=== PATIENT | male | born 1960 | race Native Hawaiian/Other Pacific Islander ===

== ENCOUNTER 2016-07-12 06:59 | Outpatient (CLI) | payer OTHER ==
[~2016-07-12 06:59] MED LIST: ALLO300T23 PO; ASPIRIN325 M1 OR; ATEN25TA21 PO; BENICAR20 MG PO; BENZONATATE200 MG PO; CEFTIN250 MG OR; CLOP75TA2 PO; CLOTCRE5 EX; DIAZ5TAB20 PO; FORTAMET500 MG PO; GABA300C2 PO; INDOMETHACIN SR75 MG PO; LEVAQUIN500 MG OR; MEDROL DOSEPAK4 MG OR; SIMV40TA57 PO
== END 2016-07-12 19:42 | disposition home or self-care (01) ==
LOC: CT 06:59
DX: M53.82 Other specified dorsopathies, cervical region (principal)

== ENCOUNTER 2016-08-09 13:18 | Outpatient (CLI) | payer OTHER | END 2016-08-09 19:23 | disposition home or self-care (01) | LOC: CT 13:18 | DX: M48.06 Spinal stenosis, lumbar region (principal) ==

== ENCOUNTER 2016-11-29 07:39 | Outpatient (CLI) | payer OTHER | END 2016-11-29 19:03 | disposition home or self-care (01) | LOC: LABW 07:39 | PROVIDERS: Nurse Practitioner Adult Health | DX: E78.2 Mixed hyperlipidemia (principal); Z79.899 Other long term (current) drug therapy; Z51.81 Encounter for therapeutic drug level monitoring | CPT/HCPCS: 36415; 80061; 80076 ==

== ENCOUNTER 2017-05-31 08:12 | Outpatient (CLI) | payer OTHER | END 2017-05-31 19:20 | disposition home or self-care (01) | LOC: LABW 08:12 | PROVIDERS: Nurse Practitioner Adult Health | DX: I25.10 Atherosclerotic heart disease of native coronary artery without angina pectoris (principal); E78.2 Mixed hyperlipidemia; Z79.899 Other long term (current) drug therapy; Z51.81 Encounter for therapeutic drug level monitoring | CPT/HCPCS: 36415; 80061; 80076 ==

== ENCOUNTER 2018-03-20 09:11 | Outpatient (CLI) | payer OTHER ==
[2018-03-20 09:56] LABS: POTASSIUM 4.7 mmol/L (3.6-5.2)
== END 2018-03-20 22:39 | disposition home or self-care (01) ==
LOC: LABW 09:11
PROVIDERS: Neurological Surgery
DX: R25.2 Cramp and spasm (principal)
CPT/HCPCS: 36415; 80053; 82550; 83735; 84100

== ENCOUNTER 2018-04-28 07:13 | Outpatient (CLI) | payer OTHER ==
[2018-04-28 07:55] LABS: PLATELET COUNT 231 K/uL (142-355)
== END 2018-04-28 19:58 | disposition home or self-care (01) ==
LOC: LABW 07:13
PROVIDERS: Internal Medicine
DX: E11.9 Type 2 diabetes mellitus without complications (principal); E83.42 Hypomagnesemia
CPT/HCPCS: 36415; 80061; 81000; 82043; 82570; 83036; 83735; 84443; 85027

== ENCOUNTER 2018-07-10 08:14 | Outpatient (CLI) | payer OTHER ==
[~2018-07-10] VITALS: Ht 188 cm; Wt 152.0 kg
== END 2018-07-10 19:03 | disposition home or self-care (01) ==
LOC: NM 08:14
DX: I25.10 Atherosclerotic heart disease of native coronary artery without angina pectoris (principal); I10 Essential (primary) hypertension
CPT/HCPCS: A9500; J2785

== ENCOUNTER 2018-07-20 07:39 | Outpatient (CLI) | payer OTHER | END 2018-07-20 22:36 | disposition home or self-care (01) | LOC: LABW 07:39 | DX: Z79.899 Other long term (current) drug therapy (principal) | CPT/HCPCS: 36415; 84402; 84403 ==

== ENCOUNTER 2018-12-21 07:33 | Outpatient (CLI) | payer OTHER | END 2018-12-21 23:36 | disposition home or self-care (01) | LOC: LABW 07:33 | PROVIDERS: Nurse Practitioner Adult Health | DX: E78.2 Mixed hyperlipidemia (principal); Z79.899 Other long term (current) drug therapy | CPT/HCPCS: 36415; 80061; 80076 ==

== ENCOUNTER 2018-12-28 07:13 | Outpatient (CLI) | payer OTHER ==
[2018-12-28 08:21] LABS: PLATELET COUNT 218 K/uL (142-355)
[2018-12-28 09:00] LABS: POTASSIUM 4.7 mmol/L (3.6-5.2)
== END 2018-12-28 23:39 | disposition home or self-care (01) ==
LOC: LAB 07:13
PROVIDERS: Internal Medicine
DX: E11.9 Type 2 diabetes mellitus without complications (principal); Z12.5 Encounter for screening for malignant neoplasm of prostate
CPT/HCPCS: 36415; 80053; 82043; 82570; 83036; 84153; 84439; 84443; 85027

== ENCOUNTER 2019-02-27 11:52 | Day surgery (SDC) | payer OTHER ==
[2019-02-27 13:10] LABS: PLATELET COUNT 195 K/uL (142-355)
[2019-02-27 13:22] LABS: POTASSIUM 4.4 mmol/L (3.6-5.2)
[2019-02-27 13:54] LABS: PARTIAL THROMBOPLASTIN TIME 23.6 SECONDS (24.5-33.6)
== END 2019-02-27 17:00 | disposition home or self-care (01) ==
LOC: OR 11:52
PROVIDERS: Internal Medicine Gastroenterology
PROC: 0DBK8ZZ Excision of Ascending Colon, Via Natural or Artificial Opening Endoscopic (ICD-10-PCS; principal; 2019-02-27)
PROC: 0DBN8ZZ Excision of Sigmoid Colon, Via Natural or Artificial Opening Endoscopic (ICD-10-PCS; 2019-02-27)
DX: K51.912 Ulcerative colitis, unspecified with intestinal obstruction (principal); K57.30 Diverticulosis of large intestine without perforation or abscess without bleeding; K63.3 Ulcer of intestine; K64.8 Other hemorrhoids; Z12.11 Encounter for screening for malignant neoplasm of colon
CPT/HCPCS: 80053; 83516; 85027; 85610; 85730; 86255; 86671; 93005; J2001; J2250; J2704

== ENCOUNTER 2019-05-20 07:46 | Outpatient (CLI) | payer OTHER | END 2019-05-20 19:21 | disposition home or self-care (01) | LOC: RAD 07:46 | DX: M25.511 Pain in right shoulder (principal) ==

== ENCOUNTER 2019-07-23 07:36 | Outpatient (CLI) | payer OTHER | END 2019-07-23 19:58 | disposition home or self-care (01) | LOC: LABW 07:36 | PROVIDERS: Nurse Practitioner Adult Health | DX: E78.2 Mixed hyperlipidemia (principal); Z79.899 Other long term (current) drug therapy | CPT/HCPCS: 36415; 80061; 80076 ==

== ENCOUNTER 2020-02-03 05:52 | Outpatient (CLI) | payer OTHER ==
[2020-02-03 06:44] LABS: PLATELET COUNT 198 K/uL (142-355)
[2020-02-03 07:18] LABS: POTASSIUM 4.8 mmol/L (3.6-5.2)
== END 2020-02-03 19:05 | disposition home or self-care (01) ==
LOC: LABW 05:52
PROVIDERS: Specialist
DX: E78.2 Mixed hyperlipidemia (principal); Z79.899 Other long term (current) drug therapy; E11.9 Type 2 diabetes mellitus without complications; M19.90 Unspecified osteoarthritis, unspecified site
CPT/HCPCS: 36415; 80053; 80061; 81000; 82043; 82248; 82570; 83036; 84443; 84550; 85027

== ENCOUNTER 2020-08-11 08:19 | Outpatient (CLI) | payer OTHER ==
[2020-08-11 08:57] LABS: PLATELET COUNT 195 K/uL (142-355)
[2020-08-11 09:24] LABS: POTASSIUM 5.4 mmol/L (3.6-5.2)
== END 2020-08-11 19:35 | disposition home or self-care (01) ==
LOC: LABW 08:19
PROVIDERS: ATTEND Internal Medicine
DX: I25.10 Atherosclerotic heart disease of native coronary artery without angina pectoris (principal); E78.2 Mixed hyperlipidemia; Z79.899 Other long term (current) drug therapy; E11.9 Type 2 diabetes mellitus without complications; M19.90 Unspecified osteoarthritis, unspecified site
CPT/HCPCS: 36415; 80053; 80061; 81000; 82043; 82248; 83036; 84439; 84443; 84550; 85027

== ENCOUNTER 2020-09-07 10:01 | Outpatient (CLI) | payer OTHER | END 2020-09-07 21:36 | disposition home or self-care (01) | LOC: RESP 10:01 | PROVIDERS: ATTEND Specialist | DX: I25.10 Atherosclerotic heart disease of native coronary artery without angina pectoris (principal); I11.9 Hypertensive heart disease without heart failure ==

== ENCOUNTER 2020-09-08 08:49 | Outpatient (CLI) | payer OTHER ==
[~2020-09-08] VITALS: Ht 30.5 cm; Wt 0.5 kg
== END 2020-09-08 20:02 | disposition home or self-care (01) ==
LOC: NM 08:49
PROVIDERS: ATTEND Specialist
DX: I25.10 Atherosclerotic heart disease of native coronary artery without angina pectoris (principal); I10 Essential (primary) hypertension; E78.2 Mixed hyperlipidemia
CPT/HCPCS: A9500; J2785

== ENCOUNTER 2020-10-12 09:10 | Outpatient (CLI) | payer OTHER ==
[2020-10-12 09:29] LABS: POTASSIUM 4.8 mmol/L (3.6-5.2)
== END 2020-10-12 19:14 | disposition home or self-care (01) ==
LOC: LABW 09:10
PROVIDERS: ATTEND Specialist
DX: E11.9 Type 2 diabetes mellitus without complications (principal); I10 Essential (primary) hypertension; Z51.81 Encounter for therapeutic drug level monitoring
CPT/HCPCS: 36415; 80048

== ENCOUNTER 2022-01-04 07:43 | Outpatient (CLI) | payer OTHER ==
[2022-01-04 08:14] LABS: PLATELET COUNT 168 K/uL (142-355)
[2022-01-04 08:41] LABS: POTASSIUM 4.3 mmol/L (3.6-5.2)
== END 2022-01-04 19:08 | disposition home or self-care (01) ==
LOC: LABW 07:43
PROVIDERS: ATTEND Physician Assistant
DX: M35.89 Other specified systemic involvement of connective tissue (principal); E11.9 Type 2 diabetes mellitus without complications; I10 Essential (primary) hypertension; I25.10 Atherosclerotic heart disease of native coronary artery without angina pectoris; M10.9 Gout, unspecified
CPT/HCPCS: 36415; 80053; 80061; 81002; 81374; 82043; 82570; 83036; 84439; 84443; 84550; 85027; 85652; 86038; 86060; 86140; 86430; 87476